=== PATIENT | male | born 1940 | race Caucasian/White ===

== ENCOUNTER → 2018-01-02 12:53 | Outpatient (CLI) | payer MEDICARE, BC, SELFPAY ==
--- NOTE | 2018-01-02 12:55 | DI.RAD.S_ITS ---
PROCEDURE: XR KNEE RT 3V INDICATIONS: knee pain, joint swelling TECHNIQUE: 3 views of the knee were acquired. COMPARISON: None. FINDINGS: Bones: No fractures or dislocations. No suspicious bony lesions. No definite joint space narrowing. Scattered degenerative spurring, including at the superior pole of patella and tibial tuberosity. Soft tissues: Small joint effusion. No suspicious soft tissue calcifications. IMPRESSION: Small joint effusion. No fracture. Dictated by: Arthur Musa M.D. on 01/02/2018 at 13:23 Approved by: Arthur Musa M.D. on 01/02/2018 at 13:28
--- NOTE | 2018-01-02 12:55 | DI.US.S_ITS ---
PROCEDURE: US PERIPH VENOUS LOW EXTREM RT INDICATIONS: RIGHT KNEE PAIN, EDEMA TECHNIQUE: Real-time imaging, as well as color and pulse Doppler interrogation, were performed of the lower extremity deep veins from the inguinal ligament to the popliteal fossa. COMPARISON: None. FINDINGS: The deep veins are normally compressible, and free of intraluminal thrombus. Color and pulse Doppler demonstrate normal phasic intraluminal flow. There is normal augmentation response to distal compression maneuver. IMPRESSION: No DVT found. Dictated by: Henry Burgos M.D. on 01/02/2018 at 13:17 Approved by: Henry Burgos M.D. on 01/02/2018 at 13:18
== END ==
PROVIDERS: Family Provider Family Medicine; PCP Family Medicine; Visit Provider Family Medicine
DX: M25.461 Effusion, right knee (principal); M25.561 Pain in right knee
CPT/HCPCS: 73562; 93971

== ENCOUNTER → 2018-01-07 15:09 | Outpatient (CLI) | payer MEDICARE, BC, SELFPAY ==
--- NOTE | 2018-01-07 15:18 | DI.MRI.S_ITS ---
PROCEDURE: MR KNEE RT WO CON INDICATIONS: 77 year-old male with medial right knee pain since December 24, 2017. Assess for meniscal tear. TECHNIQUE: Noncontrast sagittal PD fast spin echo and T2 fast spin echo with fat saturation, sagittal 3-D FLASH with fat saturation; coronal T1 spin echo and PD fast spin echo with fat saturation, and axial PD fast spin echo with fat saturation through the knee. COMPARISON: [facility], CR, XR KNEE RT 3V, 01/02/2018, 12:40. FINDINGS: Image quality: Excellent. Menisci: There is amorphous signal within the body and posterior horn of the medial meniscus, not yet meeting MR criteria for meniscal tear, and therefore more consistent with extensive mucoid degeneration. Lateral meniscus demonstrates normal morphology and internal signal. On coronal image 21, there is high-grade partial-thickness tear involving the posterior root ligament insertion of the medial meniscus. Cruciate ligaments: The anterior and posterior cruciate ligaments appear intact. Medial structures: The medial collateral ligament appears intact, with superficial interstitial edema. The posterior oblique ligament, semimembranosus tendon insertions, oblique popliteal ligament, and meniscocapsular junction appear intact. Visualized portions of the pes anserinus tendons appear normal. No abnormal bursal fluid. Lateral structures: The lateral collateral ligament, long and short heads of the biceps femoris tendon appear intact. The popliteus tendon appears normal; the popliteofibular ligament appears intact. The posterosuperior and anteroinferior popliteomeniscal fascicles appear intact. The arcuate ligament appears intact, just anterior to the lateral inferior geniculate artery. Iliotibial band appears normal. Anterior structures: The quadriceps and patellar tendons appear intact. Patellar alignment is normal. No femoral trochlear dysplasia or ventral trochlear prominence. No edema in the infrapatellar fat pad. Bones and cartilage: No bone marrow contusions or fractures. There is high-grade partial-thickness cartilage thinning involving the weightbearing portion of the medial femoral condyle. There is high-grade partial-thickness and full-thickness cartilage loss involving the superior portions of the patellar apex and both patellar facets. Lateral femoral tibial compartment cartilage demonstrates normal thickness and signal. Joint space: There is small knee joint effusion. There is small partially ruptured Healy's cyst, with inferior dissection of fluid. IMPRESSION: 1. Attenuation of the posterior root ligament insertion of the medial meniscus, consistent with high-grade partial thickness tear. 2. Findings suggest grade 1 sprain of the medial collateral ligament. 3. Small partially ruptured Healy's cyst with inferior dissection. 4. 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 Additional high-grade partial-thickness degenerative chondrosis of the medial femoral condyle. Dictated by: Kiet Asencio M.D. on 01/07/2018 at 16:17 Approved by: Kiet Asencio M.D. on 01/07/2018 at 16:28
== END ==
PROVIDERS: PCP Family Medicine; Visit Provider Family Medicine
DX: M25.561 Pain in right knee (principal); M71.21 Synovial cyst of popliteal space [Baker], right knee; M22.41 Chondromalacia patellae, right knee
CPT/HCPCS: 73721

== ENCOUNTER → 2018-05-14 08:12 | Outpatient (CLI) | payer MEDICARE, BC, SELFPAY ==
[2018-05-14 09:13] LABS: Alanine Aminotransferase 33 IU/L (21-72); Albumin 4.3 g/dL (3.5-5.0); Albumin Globulin Ratio 1.8 (1.0-2.8); Alkaline Phosphatase 76 U/L (38-126); Aspartate Aminotransferase 30 IU/L (17-59); Bilirubin Total 0.8 mg/dL (0.2-1.3); Blood Urea Nitrogen 16 mg/dL (9-20); Calcium 9.2 mg/dL (8.4-10.2); Carbon Dioxide 28 mmol/L (22-32); Chloride 105 mmol/L (98-107); Estimated Glomerular Filt Rate > 60.0 mL/min (>60); Globulin 2.4 g/dL (1.7-4.1); Glucose 112 mg/dL (80-110); HEMOLYSIS < 15 (0-50); Potassium 4.3 mmol/L (3.4-5.1); Sodium 143 mmol/L (137-145); Total Protein 6.7 g/dL (6.3-8.2)
== END ==
PROVIDERS: PCP Family Medicine; Visit Provider Family Medicine
DX: E78.2 Mixed hyperlipidemia (principal); Z12.5 Encounter for screening for malignant neoplasm of prostate
CPT/HCPCS: 36415; 80053

== ENCOUNTER → 2018-05-22 08:40 | Outpatient (CLI) | payer MEDICARE, BC, SELFPAY ==
[2018-05-22 10:22] LABS: Hemoglobin A1C% w Est Avg Glu 5.6 % (4.0-6.0)
[2018-05-22 10:26] LABS: Cholesterol 177 mg/dL (140-199); HDL Cholesterol 55 mg/dL (40-60); LDL Cholesterol Calculated 105 mg/dL (<100); Triglycerides 86 mg/dL (35-150)
[2018-05-22 10:56] LABS: Prostate Specific Antigen Scrn 0.883 ng/mL (0.1-4.0)
== END ==
PROVIDERS: PCP Family Medicine; Visit Provider Family Medicine
DX: E78.2 Mixed hyperlipidemia (principal); R73.9 Hyperglycemia, unspecified; Z12.5 Encounter for screening for malignant neoplasm of prostate
CPT/HCPCS: 36415; 80061; 83036; G0103